=== PATIENT | male | born 1945 | race Caucasian/White ===

== ENCOUNTER → 2017-07-11 | Outpatient (CLI) | payer MEDICARE, OTHER ==
[~2017-07-11] MED LIST: ASPI-586 PO; CARV25TA PO; HYDR25TA4 PO; LORA0.5T PO; PRAV10TA PO; RPN.25T PO; SAW450CA4 PO
--- NOTE | 2017-07-11 13:10 | Diagnostic Imaging Report ---
EXAMINATION: Scrotal ultrasound. INDICATION: Left testicular lump. COMPARISON: There are no prior studies available for comparison. FINDINGS: Spectral and color flow imaging of the testicles was performed. Both testicles were identified. The right testicle measures 4.5 x 2.2 x 3.3 cm while the left testicle is estimated to be 4.5 x 2.1 x 2.5 cm. There is no evidence for a solid testicular mass, and there is no sign of torsion. There is a septated epididymal cyst on the right measuring 2.9 x 1.0 x 2.3 cm. This does contain a few internal echoes, and this cyst may be slightly complicated by infection and/or hemorrhage. This does appear to correspond to the patient's palpable abnormality. There is also a septated cyst associated with the epididymal head on the left. This measures 1.9 x 1.3 x 1.6 cm. This may be slightly complicated by infection and/or hemorrhage as well. There is no hydrocele formation identified. IMPRESSION: 1. There is no evidence for a solid testicular mass or for torsion. 2. There do appear to be septated slightly complicated epididymal cysts bilaterally. The cyst on the right is larger and may well correspond to the patient's palpable abnormality. Clinical followup is recommended. Dictated by: Dictated on workstation # [id number]
== END ==
LOC: RAD 11:38
PROVIDERS: ATTEND Urology
DX: N50.3 Cyst of epididymis (principal)
CPT/HCPCS: 76870

== ENCOUNTER → 2018-11-22 | Emergency (ER) | payer MEDICARE, OTHER | LOC: ER 08:22 ==

== ENCOUNTER 2019-10-26 09:21 | Outpatient (RCR) | payer MEDICARE, OTHER ==
[~2019-10-26 09:21] MED LIST changes: -SAW450CA4 PO; +SAW450CA7 PO
== END 2019-12-07 | disposition home or self-care (01) ==
PROVIDERS: ATTEND Orthopaedic Surgery
DX: M50.321 Other cervical disc degeneration at C4-C5 level (principal); M47.812 Spondylosis without myelopathy or radiculopathy, cervical region; M75.01 Adhesive capsulitis of right shoulder; M25.811 Other specified joint disorders, right shoulder; Z98.1 Arthrodesis status

== ENCOUNTER 2020-01-14 11:15 | Outpatient (RCR) | payer MEDICARE, OTHER | END 2020-04-05 | disposition home or self-care (01) | PROVIDERS: ATTEND Physician Assistant | DX: M54.5 Low back pain (principal) ==

== ENCOUNTER 2020-06-23 09:13 | Outpatient (RCR) | payer MEDICARE, OTHER | END 2020-06-23 11:32 | disposition home or self-care (01) | PROVIDERS: ATTEND Physician Assistant | DX: G83.89 Other specified paralytic syndromes (principal); M62.81 Muscle weakness (generalized); M54.5 Low back pain; I10 Essential (primary) hypertension; Z98.1 Arthrodesis status ==

== ENCOUNTER → 2022-05-03 | Outpatient (RCR) | payer MEDICARE, OTHER | END | disposition home or self-care (01) | PROVIDERS: ATTEND Orthopaedic Surgery Orthopaedic Surgery of the Spine | DX: M54.9 Dorsalgia, unspecified (principal); I10 Essential (primary) hypertension ==

== ENCOUNTER 2022-05-21 09:16 | Outpatient (RCR) | payer MEDICARE, OTHER | END 2022-06-03 | disposition home or self-care (01) | PROVIDERS: ATTEND Orthopaedic Surgery Orthopaedic Surgery of the Spine | DX: M54.9 Dorsalgia, unspecified (principal); I10 Essential (primary) hypertension ==

== ENCOUNTER 2022-07-03 09:49 | Outpatient (RCR) | payer MEDICARE, OTHER | END 2022-07-04 | disposition home or self-care (01) | PROVIDERS: ATTEND Orthopaedic Surgery Orthopaedic Surgery of the Spine | DX: M54.9 Dorsalgia, unspecified (principal); I10 Essential (primary) hypertension ==

== ENCOUNTER 2022-07-30 10:23 | Outpatient (RCR) | payer MEDICARE, OTHER | END 2022-07-30 12:30 | disposition home or self-care (01) | PROVIDERS: ATTEND Orthopaedic Surgery Orthopaedic Surgery of the Spine | DX: M54.9 Dorsalgia, unspecified (principal); I10 Essential (primary) hypertension ==

== ENCOUNTER 2023-05-01 16:10 | Outpatient (RCR) | payer MEDICARE, OTHER | END 2023-05-03 | disposition home or self-care (01) | PROVIDERS: ATTEND Family Medicine | DX: M53.87 Other specified dorsopathies, lumbosacral region (principal) ==

== ENCOUNTER → 2023-06-03 | Outpatient (RCR) | payer MEDICARE, OTHER | END | disposition home or self-care (01) | PROVIDERS: ATTEND Family Medicine | DX: M53.87 Other specified dorsopathies, lumbosacral region (principal); I10 Essential (primary) hypertension ==

== ENCOUNTER 2023-06-25 09:45 | Outpatient (RCR) | payer MEDICARE, OTHER | END 2023-07-04 | disposition home or self-care (01) | PROVIDERS: ATTEND Family Medicine | DX: M53.87 Other specified dorsopathies, lumbosacral region (principal); I10 Essential (primary) hypertension ==